=== PATIENT | male | born 1965 | race African-American/Black ===

== ENCOUNTER 2017-06-22 05:05 | Observation (INO) | payer BC, OTHER ==
[2017-06-22 05:52] LABS: Bilirubin Negative (Negative); Blood, Urine Negative (Negative); Glucose, Urine (Dipstick) Negative (Negative); Ketone, Urine Negative (Negative); Nitrite Negative (Negative); Protein, Urine (Dipstick) Negative (Neg-Trace)
[2017-06-22 06:01] LABS: #Eosinphils 0.1 thou/uL (0.0-0.7); #Lymphocytes 1.5 thou/uL (1.20-3.40); #Monocytes 0.7 thou/uL (0.11-0.59); #Neutrophils 4.4 thou/uL (1.40-6.50); %Basophils 0.4 % (0.0-1.0); %Eosinophils 0.8 % (0.0-10.0); %Lymphocytes 22.7 % (21.0-51.0); %Monocytes 10.6 % (0.0-10.0); Hematocrit 49.4 % (42.0-52.0); Mean Platelet Volume 6.9 fL (7.4-10.4); White Blood Cell (WBC) Count 6.7 thou/uL (4.8-10.8)
[2017-06-22 06:01] LABS: Amphetamine Not Detected (NotDetected); Methadone Not Detected (NotDetected); Methamphetamine Not Detected (NotDetected)
[2017-06-22 06:24] LABS: ALT (SGPT) 11 U/L (8-55); AST (SGOT) 15 U/L (5-34); Alkaline Phosphatase 78 U/L (40-150); Anion Gap 18 mmol/L (10-20); BUN (Urea Nitrogen) 15 mg/dL (8.4-25.7); Calc. Creatinine Clearance 0 mL/min (70-130); Calcium 9.5 mg/dL (7.8-10.44); Carbon Dioxide 20 mmol/L (22-29); Chloride 101 mmol/L (98-107); Estimated GFR-MDRD 76; Globulin 3.8 g/dL (2.4-3.5); Protein, Total 8.1 g/dL (6.0-8.3)
[2017-06-22 06:54] LABS: Troponin I Less than 0.010 ng/mL (< 0.028)
[2017-06-22] MEDS ORDERED: Aspirin 325 MG TAB ONE (08:15)
--- NOTE | 2017-06-22 09:19 | CT ---
PRELIMINARY REPORT/[facility]/EMERGENCY AFTER HOURS PROCEDURE: EXAM: CT Head Without Intravenous Contrast CLINICAL HISTORY: 52 years old, male; Signs and symptoms; Syncope and collapse; Patient HX: TIA, syncopal episode TECHNIQUE: Axial computed tomography images of the head/brain without intravenous contrast. COMPARISON: No relevant prior studies available. FINDINGS: Brain: Unremarkable. No hemorrhage. No significant white matter disease. No edema. Ventricles: Unremarkable. No ventriculomegaly. Bones/joints: Unremarkable. No acute fracture. Soft tissues: Unremarkable. Sinuses: Right maxillary sinus opacification, partially visualized. Mastoid air cells: Unremarkable as visualized. No mastoid effusion. IMPRESSION: 1. No acute intracranial findings. 2. Paranasal sinus disease. Thank you for allowing us to participate in the care of your patient. Dictated and Authenticated by: Praveen Bob MD 06/22/2017 6:10 AM Central Time ([place] \T\ [place]) FINAL REPORT BRAIN CT WITHOUT IV CONTRAST: EMERGENT AFTER HOURS EXAM TIME: 5:51 a.m. DATE: 06/22/17. Expansile soft tissue changes in the right maxillary sinus with some right ethmoid sinus mucosal dis ease. No mass or bleed or other significant acute intracranial process.
[2017-06-22 09:38] VITALS: BMI 23.6
[2017-06-22 09:48] LABS: Troponin I Less than 0.010 ng/mL (< 0.028)
[2017-06-22] MEDS ORDERED: Sodium Chloride 0.65% Nasal 44 ML BOT EA NARE PRN (10:00)
[2017-06-22] MEDS ORDERED: Diabetic Tussin 200 MG/10 ML UDCUP PO PRN (10:00)
[2017-06-22] MEDS ORDERED: hydrALAZINE 20 MG/ML VIAL SLOW IVP PRN (10:00)
[2017-06-22] MEDS ORDERED: Eucerin (Mineral Oil/Petrolatum,White) 30 gm Jar TOP PRN (10:00)
[2017-06-22] MEDS ORDERED: Senokot 8.6 MG TAB PO PRN (10:00)
[2017-06-22] MEDS ORDERED: Artificial Tears 18 DROP/0.9 ML EA EYE PRN (10:00)
[2017-06-22] MEDS ORDERED: Loperamide HCl 2 MG CAP PO PRN (10:00)
[2017-06-22] MEDS ORDERED: Acetaminophen 325 MG TAB PO PRN (10:00)
[2017-06-22] MEDS ORDERED: Loratadine 10 MG TAB PO PRN (10:00)
[2017-06-22] MEDS ORDERED: Ondansetron ODT 4 MG TAB PO PRN (10:00)
[2017-06-22] MEDS ORDERED: Milk Of Magnesia 30 ML UDCUP PO PRN (10:00)
[2017-06-22] MEDS ORDERED: Mag-Al 1200 mg/1200 mg/30 ML UDCUP PO PRN (10:00)
[2017-06-22] MEDS ORDERED: Zolpidem Tartrate 5 MG TAB PO PRN (10:00)
[2017-06-22] MEDS ORDERED: HYDROcodone/Acetaminophen 5/325 mg Tablet PO PRN (10:00)
[2017-06-22] MEDS ORDERED: Ondansetron HCl/PF 4 MG/2 ML Vial IVP PRN (10:00)
--- NOTE | 2017-06-22 10:58 | HP ---
PRIMARY CARE PHYSICIAN: [facility]. REASON FOR ADMISSION: Syncope. HISTORY OF PRESENT ILLNESS: A 52-year-old -[place] male who was recently diagnosed with hyp ertension and started on blood pressure medicine on Thursday. Patient was taking that medication l osartan with hydrochlorothiazide 50/12.5 one tablet daily. Last night, he woke up to go to restroom and when he was in bathroom and urinating, at that time, he was feeling dizzy and he slowly sat elvis n on the floor. Patient's came at that time and she noticed that he was unresponsive. He rega ined consciousness within few seconds. At that time, patient was perspiring all over his body. He did not have any seizure-like activity. The patient regained consciousness immediately without any headache or altered mental status. Before passing out, patient did not have any chest pain, palpita tion or shortness of breath. When he regained consciousness, he did not have any chest pain, palpit ation or shortness of breath. He did not have any focal motor or sensory symptoms on either extremi ty. Patient's called paramedics. At that time, his diastolic blood pressure was low and lucy diaz was brought to emergency room for evaluation. In the emergency room, patient was completely normal. He did not have any weakness on either side. As per paramedics, patient found on the toilet seat with left-sided weakness and aphasia, but lucy diaz completely denies this history to me. REVIEW OF SYSTEMS: The following complete review of systems was negative, unless otherwise mentione d in the HPI or below: Constitutional: Weight loss or gain, ability to conduct usual activities. Skin: Rash, itching. Eyes: Double vision, pain. ENT/Mouth: Nose bleeding, neck stiffness, pain, tenderness. Cardiovascular: Palpitations, dyspnea on exertion, orthopnea. Respiratory: Shortness of breath, wheezing, cough, hemoptysis, fever or night sweats. Gastrointestinal: Poor appetite, abdominal pain, heartburn, nausea, vomiting, constipation, or diar vaughn. Genitourinary: Urgency, frequency, dysuria, nocturia. Musculoskeletal: Pain, swelling. Neurologic/Psychiatric: Anxiety, depression. Allergy/Immunologic: Skin rash, bleeding tendency. Please see my HPI for pertinent positive and negative. All other review of systems reviewed and neg ative except as mentioned in the HPI. ALLERGIES: No known drug allergies. CURRENT HOME MEDICATIONS: Losartan with hydrochlorothiazide 50/12.5 one tablet p.o. daily. PAST MEDICAL HISTORY: New diagnosis of hypertension. PAST SURGICAL HISTORY: Reviewed and negative. PAST PSYCHIATRIC HISTORY: Reviewed and negative. SOCIAL HISTORY: Patient is . He is working in [employer]. No history of tobacco, alcohol or il licit drug abuse. He is and lives with his with family. FAMILY HISTORY: Mother was diagnosed with stroke in her old age, but no strong family history of co ronary artery disease or cancer. EMERGENCY ROOM COURSE: Patient was given aspirin 325 mg. PHYSICAL EXAMINATION: VITAL SIGNS: On arrival, blood pressure 167/97, pulse 62, respiratory rate 20, temperature 97.4, sa turation 96% on room air, weight 88 kilograms. GENERAL: The patient is currently alert, awake, no acute distress. HEAD: Normocephalic, atraumatic. EYES: Pupils round, reactive to light. Extraocular muscle intact. ENT: Oropharynx within normal limits. Moist mucous membranes. No oral lesions. No pharyngeal marlon thema, no exudate. NECK: Supple, no JVD, no thyromegaly, no carotid bruit, no meningeal signs of irritation. LUNGS: Clear to auscultation without any rhonchi or rales. CARDIAC: S1, S2 regular. No murmur elicited, no gallop, no rub. ABDOMEN: Soft, bowel sounds present, nontender, nondistended. No organomegaly, no mass, no suprapu bic tenderness. BACK: Examination unremarkable, no CVA tenderness. EXTREMITIES: Upper extremity, passive movements of all joints are normal. Lower extremity passive movements of all joints are normal. No edema, good peripheral pulsation. SKIN: No skin rash. HEMATOLOGICAL SYSTEM: No lymphadenopathy. PSYCHIATRIC: Normal affect. NEUROLOGIC: Patient is alert and oriented x3. Speech normal. Cranial nerves II-XII intact. Motor 5/5 in all four limbs. Sensation bilaterally symmetrical. Reflexes symmetrical. No cerebellar si gn. Normal neurological examination. IMAGING AND SIGNIFICANT LABORATORY DATA: 1. EKG based on my review, normal sinus rhythm, mild LVH criteria. 2. CT brain based on my review, no acute intracranial process, paranasal sinus disease. 3. CBC: WBC 6.7, hemoglobin 15.6, platelets 198. INR 1.1. Sodium 135, potassium 3.5, chloride 10 1, carbon dioxide 20, BUN 15, creatinine 1.21, glucose 97, calcium 9.5. 4. LFT: AST 15, ALT 11, alkaline phosphatase 78, and albumin 4.3. Cardiac enzymes negative x2. U rinalysis normal. Urine drug screen negative. ASSESSMENT AND PLAN/IMPRESSION: 1. Syncope. This patient's description of presentation is most likely consistent with syncope. Wale hernandez did not have any focal motor or sensory symptoms as per current history to me, but patient als o found with left-sided deficit and aphasia as per paramedics and that is why we will keep this neil ent in hospital at the stroke floor. We will do neuro check every 4 hourly. We will obtain carotid ultrasound to rule out any carotid stenosis. His CT brain is negative at this point and he does no t have any focal neurological deficit. We will also obtain echocardiography to assess ejection frac tion and other structural abnormality. Most likely, presentation is consistent with orthostatic hyp otension and that is why we will perform orthostatic vitals. We will monitor on telemetry floor to rule out any arrhythmia. We will do serial cardiac enzymes x3 and check lipid profile for risk stra tification. Meanwhile, we will continue with aspirin 81 mg p.o. daily. If his blood pressure permi ts, then we will also resume his home medication. 2. Hypertension. Currently, patient's blood pressure is relatively on high side, so we will resume losartan with hydrochlorothiazide 50/12.5 one tablet p.o. daily. We will also rule out orthostatic hypotension. 3. Deep venous thrombosis prophylaxis not needed because we are expecting discharge in 24 hours. 4. Gastrointestinal prophylaxis, Pepcid 20 mg p.o. b.i.d. 5. Code status: The patient is FULL CODE. The patient's is surrogate decision maker. Disposition plan within 24 hours. Plan of care discussed with the patient and family member at beds [facility]io.
[2017-06-22 12:31] LABS: Troponin I Less than 0.010 ng/mL (< 0.028)
--- NOTE | 2017-06-22 13:29 | ULT ---
CAROTID ULTRASOUND WITH ALEXIS SCALE AND DOPPLER DUPLEX COLOR FLOW IMAGING SPECTRAL ANALYSIS PERFORMED: CLINICAL INDICATION: Syncope. FINDINGS: There is scattered mild intimal thickening/plaque formation and atherosclerotic calcification of the carotid arteries. PEAK SYSTOLIC VELOCITY (CM/S): Right CCA 144 Left CCA 142 Right ICA 92 Left ICA 48 There is antegrade bilateral flow within the visualized bilateral vertebral arteries. IMPRESSION: 1. No hemodynamically significant stenosis of the right internal carotid artery. 2. No hemodynamically significant stenosis of the left internal carotid artery. Reduced flow of th e Left ICA is non-specific. Correlate clinically, and if necessary, CTA Neck may be obtained. POS: BRIANNA
[2017-06-22] MEDS: Famotidine 20 MG TAB PO SCH (20:53)
[2017-06-23 08:08] VITALS: BP 144/86; TEMP 98.4
[2017-06-23] MEDS: Famotidine 20 MG TAB PO SCH (08:35)
--- NOTE | 2017-06-23 10:40 | DIS ---
PRIMARY CARE PHYSICIAN: [facility]. DATE OF ADMISSION: 06/22/2017 DATE OF DISCHARGE: 06/23/2017 DISCHARGE DISPOSITION: Home. PRIMARY DISCHARGE DIAGNOSIS: Syncope, likely due to orthostatic hypotension. SECONDARY DISCHARGE DIAGNOSIS: Hypertension. PRIMARY PROCEDURES/OPERATIONS: None. RADIOLOGICAL INVESTIGATION: CT brain negative for an acute intracranial process. Carotid Doppler w as negative for any stenosis. Echocardiography showed normal EF. SIGNIFICANT LABS: WBC 6.7, hemoglobin 15.6, platelets 198. INR 1.1. Sodium 135, potassium 3.5, ch loride 101, BUN 15, creatinine 1.21, calcium 9.5. LFTs normal. Cardiac enzymes negative x3. LDL 4 4, HDL 37. Urinalysis normal. Urine drug screen negative. DISCHARGE MEDICATIONS: The patient will continue losartan with hydrochlorothiazide 1 tablet p.o. da deandra, aspirin 81 mg p.o. daily. CONTRAINDICATIONS: None. CODE STATUS: FULL CODE. INPATIENT CONSULTANTS: None. ALLERGIES: No known drug allergies. DISCHARGE PLAN: Post hospital, the patient will follow up with primary care physician, Dr. Malagon in 1 week. HOSPITAL COURSE: A 52-year-old male with the above mentioned medical problem, who was recently diag nosed with hypertension and started on antihypertensive medication. On the day of admission during nighttime, the patient went to restroom and he had an episode of syncope. [facility] and [facility]edics also reported some speech problem and left-sided weakness and there was c oncern of TIA and that is why he was admitted to stroke floor. When he arrived to the emergency briana , he was completely hemodynamically stable and he was completely normal. His CT brain was negative . He was admitted to stroke floor. We observed him for a neuro check, which was normal. Subsequen tly, we did a carotid Doppler, which came back normal. Echocardiography came back normal. Serial c ardiac enzymes were negative. The patient remained clinically stable and normal. OBJECTIVE: VITAL SIGNS: This morning I saw this patient at bedside and currently temperature 98.4, pulse 53, r espiratory rate 14, saturation 100%, blood pressure 144/86, and weight 196 pound. GENERAL: The patient is currently alert, oriented, in no acute distress. HEAD: Normocephalic, atraumatic. EYES: Pupils round, reactive to light. Extraocular muscle intact. ENT: Oropharynx within normal limits. Moist mucous membranes. No oral lesions. No pharyngeal marlon thema, no exudates. NECK: Supple. LUNGS: Clear to auscultation without any rhonchi or rales. CARDIAC: S1 and S2 regular without any murmur. NEUROLOGIC: Nonfocal examination. We advised this patient to monitor blood pressure at home and keep diary of blood pressure and see p [facility] care physician in 1 week for further adjustment of therapy if needed. The patient is medically stable for discharge today.
--- NOTE | 2017-08-07 15:00 | EKG ---
Test Reason : Blood Pressure : / mmHG Vent. Rate : 063 BPM Atrial Rate : 063 BPM P-R Int : 188 ms QRS Dur : 096 ms QT Int : 530 ms P-R-T Axes : 029 -23 008 degrees QTc Int : 542 ms Normal sinus rhythm Minimal voltage criteria for LVH, may be normal variant Prolonged QT Abnormal ECG Confirmed by GER CALIX, DASIA Quiroz ([id number]), video effects editor ELA ROBLES ([id number]) on 08/07/2017 2:59:52 PM Referred By: Confirmed By:DASIA CYR MD
== END 2017-06-23 10:18 | disposition home or self-care (01) ==
LOC: ERS 05:05 → 2SE 06:49
PROVIDERS: ADMIT Family Medicine; ATTEND Family Medicine
DX: R55 Syncope and collapse (principal); I10 Essential (primary) hypertension; Z79.899 Other long term (current) drug therapy
CPT/HCPCS: 36415; 70450; 80053; 80061; 80306; 81003; 82553; 84484; 85025; 85610; 93005; 93306; 93880; G0378